=== PATIENT | female | born 1990 | race Caucasian/White ===

== ENCOUNTER 2019-05-01 22:04 | Emergency (ER) | payer OTHER ==
[~2019-05-01] VITALS: Ht 157.5 cm; Wt 66.3 kg
[2019-05-01 22:06] VITALS: Ht 157.5 cm; Wt 66.3 kg
[2019-05-01 23:23] VITALS: BP 111/65
== END 2019-05-01 23:23 | disposition home or self-care (01) ==
LOC: ED 22:04
DX: S00.81XA Abrasion of other part of head, initial encounter (principal); W04.XXXA Fall while being carried or supported by other persons, initial encounter; Y93.89 Activity, other specified; Y92.89 Other specified places as the place of occurrence of the external cause; Y99.8 Other external cause status